=== PATIENT | female | born 1955 | race Caucasian/White ===

== ENCOUNTER 2017-08-23 09:14 | Observation (INO) ==
[2017-08-23] MEDS ORDERED: Aspirin 81 MG TAB.CHEW PO ONE (09:46)
[2017-08-23] MEDS: Nitroglycerin 0.4 MG TAB.SUBL SL ONE ×2 (09:58→10:46)
[2017-08-23 10:03] LABS: Basophils % 0.5 %; Eosinophils % 0.8 %; Hematocrit 39.9 % (35.3-44.9); Hemoglobin 13.5 g/dL (11.5-15.4); Immature Granulocytes % 0.3 % (0-4); Immature Platelets 2.3 % (1.1-6.1); Lymphocytes # 1.2 K/mcL (0.6-4.6); Lymphocytes % 31.4 %; Mean Corpuscular HGB Conc 33.8 g/dL (31.6-35.5); Mean Corpuscular Hemoglobin 30.5 pg (28.0-33.3); Mean Corpuscular Volume 90.1 fL (83.0-100.0); Monocytes # 0.3 K/mcL (0.0-1.3); Monocytes % 8.9 %; Neutrophils # 2.1 K/mcL (1.6-8.9); Platelet Count 220 K/mcL (140-400); Red Blood Count 4.43 M/mcL (3.82-4.97); Red Cell Distribution Width 13.1 % (11.5-14.5); Segmented Neutrophils % 58.1 %
[2017-08-23 10:09] LABS: INR 1.1; Prothrombin Time 11.8 Seconds (9.4-12.1)
[2017-08-23 10:12] LABS: Activated Partial Thrombo Time 34.3 Seconds (26.0-36.0)
[2017-08-23 10:16] LABS: BUN/Creatinine Ratio 18 (6-26); Blood Urea Nitrogen 14 mg/dL (7-20); Calcium 8.9 mg/dL (8.6-10.8); Carbon Dioxide 26 mEq/L (19-29); Chloride 108 mEq/L (98-109); Glucose 85 mg/dL (70-99); Osmolality,Calculated 292 (280-300); Potassium 3.9 mEq/L (3.5-4.5); Sodium 141 mEq/L (136-145); eGFR For African Americans > 60 (> 60); eGFR For Non-African Americans > 60 (> 60)
--- NOTE | 2017-08-23 10:43 | Emergency Department Note ---
Disposition Clinical Impression: Stable angina Chest pain Qualifiers: Chest pain type: unspecified Qualified Code(s): R07.9 - Chest pain, unspecified Disposition: Admitted As Inpatient Condition: Fair Referrals: Mazin Macias [Primary Care Provider] - Forms: ED Satisfaction Letter Time of Disposition: 12:04 Chest Pain HPI - General Chief Complaint: ED Chest Pain Stated Complaint: Chest Heavy Time Seen by Provider: 08/23/17 09:26 Source: patient Mode of arrival: wheelchair Limitations: no limitations Vital Signs Reviewed: Yes Nursing Notes Reviewed: Yes - History of Present Illness HPI Narrative: 61-year-old otherwise healthy female presents to the ED complaining of chest pressure. She states this started this morning when she woke up. She currently has no medical issues does not take any medications outside of a thyroid medication. She has a hypothyroid but states there is been no changes in his medications recently. She says that it is a 4 out of 10 chest pressure nonradiating stays on the left side of her chest. Says it feels like something is sitting on it. She is having no shortness of breath. She is having no nausea or vomiting. She has never had this pain before. Says she did have a similar thing one week ago but it quickly went away. She did not think anything of it. She has never been seen by clinical psychiatrist or have or had a cardiac workup. These chest pains are not exertional that she is having. She has had no shortness of breath. No abdominal pain, change in bowel movements or pain with urination. She has no pain or tingling going down the arms or legs or any numbness. She has had no headaches or blurry vision. She has had no fevers. She otherwise having no complaints. She does have a family history of cardiac it was worse on her mother's side. She does not have a history of hypertension. Severity scale (1-10): 5 - Related Data Home Medications Medication Instructions Recorded Confirmed Alendronate Sodium [Fosamax] 70 mg PO QWEEK 08/23/17 08/23/17 Calcium Carbonate/Vitamin D3 1 tab PO BID 08/23/17 08/23/17 [Calcium 600 + Vit D Tablet] Estradiol [Estrace] 1 mg PO DAILY 08/23/17 08/23/17 Levothyroxine Sodium [Levoxyl] 100 mcg PO DAILY 08/23/17 08/23/17 Allergies Allergy/AdvReac Type Severity Reaction Status Date / Time Penicillins Allergy See Verified 08/23/17 09:21 Comments Review of Systems: 10 point review of systems done and negative unless otherwise stated in history of present illness. All systems ED: reviewed and negative except as stated. Review of Systems: As Per HPI Chest Pain PMH - Past Medical History Medical history: Reports: thyroid disease Psychiatric history: Reports: no psych history - Social History Smoking Status: Never smoker Alcohol use: Reports: rarely Drug use: Reports: none Physical Exam - General Limitations: no limitations General appearance: alert, in no apparent distress - Head Head exam: atraumatic, normocephalic, normal inspection - Eye Eye exam: Present: normal appearance, PERRL, EOMI - ENT ENT exam: normal exam, normal oropharynx, mucous membranes moist - Neck Neck exam: Present: normal inspection, full ROM, trachea midline - Chest Chest inspection: Present: normal inspection, symmetric chest wall rise. Absent : tenderness - Respiratory Respiratory exam: Present: normal lung sounds bilaterally - Cardiovascular Cardiovascular exam: Present: regular rate, normal rhythm, normal heart sounds - Abdominal Exam Abdominal exam: Present: soft, Non-Tender. Absent: tenderness, distention, guarding, rebound, rigidity - Extremities Exam Extremities exam: Present: normal inspection, full ROM. Absent: tenderness, pedal edema - Back Exam Back exam: Present: normal inspection, full ROM. Absent: tenderness, CVA tenderness (R), CVA tenderness (L) - Neurological Exam Neurological exam: Present: alert, oriented X3 - Skin Skin exam: Present: warm, dry, intact, normal color Course Course Narrative: 61-year-old female presents with chest pain. We will do normal chest pain workup including CBC, CMP, troponin as well as a TSH due to her thyroid issues. Will get chest x-ray EKG. I will give her an IV in saline lock. We will do a nitroglycerin trial to valvular chest pain as well as give her full dose aspirin. Patient okay with this plan. Patient most likely will be admitted due to having cardiac workup and this seemed cardiac Vital Signs Temperature 98.0 F 08/23/17 09:19 Pulse Rate 54 08/23/17 09:19 Respiratory Rate 16 08/23/17 09:19 Blood Pressure 135/85 08/23/17 09:19 O2 Sat by Pulse Oximetry 92 08/23/17 09:19 Temperature 98.0 F 08/23/17 09:19 Pulse Rate 57 08/23/17 11:07 Respiratory Rate 16 08/23/17 11:07 Blood Pressure 117/76 08/23/17 11:07 O2 Sat by Pulse Oximetry 99 08/23/17 11:07 Oxygen Delivery Oxygen Delivery Room Air Chest Pain - MDM Narrative Medical decision making narrative: 61-year-old female presents to the ED complaining of chest pain and dyspnea on exertion. She recently started on estrogen and also takes thyroid medication as she does her history of hypothyroidism, she otherwise takes no medications. She has had the chest pain came all of a sudden today is located in left side of her chest and feels like chest pressure due to this we did normal chest pain workup EKG came back showing no acute changes. Chest x-ray was normal all labs came back normal including her troponin. She was hypertensive 170/120 upon arrival suicide to give her a nitroglycerin trial her chest pain did go when her pressure also did lowered to 120/90. Because the nitroglycerin did help the gave her 1 inch of Nitropaste. I also gave her full dose aspirin. Patient was talked to about admission and agreed to be admitted for cardiac evaluation. She has never had the past. Spoke with the hospitalist Dr. Andrea who agreed to admit the patient for chest pain workup. Patient was admitted to the hospitalist service and stable condition. Chest X-Ray 08/23/17 09:46 IMPRESSION: Low lung volumes. D/ / Santana Venegas MD / Santana Venegas MD Interpreting Provider: Santana Venegas MD - Medical Records Medical records reviewed: Yes I reviewed the patient's medical records. - Lab Data Lab results reviewed: Yes I reviewed the patient's lab results. Result diagrams: 08/23/17 09:56 08/23/17 09:56 Lab Results 08/23/17 08/23/17 08/23/17 Range/Units 09:56 09:56 09:56 WBC 3.7 L (4.3-11.1) K/mcL RBC 4.43 (3.82-4.97) M/mcL Hgb 13.5 (11.5-15.4) g/dL Hct 39.9 (35.3-44.9) % MCV 90.1 (83.0-100.0) fL MCH 30.5 (28.0-33.3) pg MCHC 33.8 (31.6-35.5) g/dL RDW 13.1 (11.5-14.5) % Plt Count 220 (140-400) K/mcL MPV 9.0 L (9.4-12.4) fL Immature Gran % 0.3 (0-4) % Seg Neutrophils % 58.1 % Lymphocytes % 31.4 % Monocytes % 8.9 % Eosinophils % 0.8 % Basophils % 0.5 % Neutrophils # 2.1 (1.6-8.9) K/mcL Lymphocytes # 1.2 (0.6-4.6) K/mcL Monocytes # 0.3 (0.0-1.3) K/mcL Eosinophils # 0.0 (0.0-0.6) K/mcL Basophils # 0.0 (0.0-0.2) K/mcL Immature Plt Fraction 2.3 (1.1-6.1) % PT 11.8 (9.4-12.1) Seconds INR 1.1 APTT 34.3 (26.0-36.0) Seconds Sodium 141 (136-145) mEq/L Potassium 3.9 (3.5-4.5) mEq/L Chloride 108 (98-109) mEq/L Carbon Dioxide 26 (19-29) mEq/L BUN 14 (7-20) mg/dL Creatinine 0.77 (0.57-1.11) mg/dL Est GFR ( Amer) > 60 (> 60) Est GFR (Non-Af Amer) > 60 (> 60) BUN/Creatinine Ratio 18 (6-26) Glucose 85 (70-99) mg/dL Calculated Osmolality 292 (280-300) Calcium 8.9 (8.6-10.8) mg/dL Troponin I (0-0.03) ng/mL TSH (0.350-4.840) mcIU/mL 08/23/17 08/23/17 Range/Units 09:56 09:56 WBC (4.3-11.1) K/mcL RBC (3.82-4.97) M/mcL Hgb (11.5-15.4) g/dL Hct (35.3-44.9) % MCV (83.0-100.0) fL MCH (28.0-33.3) pg MCHC (31.6-35.5) g/dL RDW (11.5-14.5) % Plt Count (140-400) K/mcL MPV (9.4-12.4) fL Immature Gran % (0-4) % Seg Neutrophils % % Lymphocytes % % Monocytes % % Eosinophils % % Basophils % % Neutrophils # (1.6-8.9) K/mcL Lymphocytes # (0.6-4.6) K/mcL Monocytes # (0.0-1.3) K/mcL Eosinophils # (0.0-0.6) K/mcL Basophils # (0.0-0.2) K/mcL Immature Plt Fraction (1.1-6.1) % PT (9.4-12.1) Seconds INR APTT (26.0-36.0) Seconds Sodium (136-145) mEq/L Potassium (3.5-4.5) mEq/L Chloride (98-109) mEq/L Carbon Dioxide (19-29) mEq/L BUN (7-20) mg/dL Creatinine (0.57-1.11) mg/dL Est GFR ( Amer) (> 60) Est GFR (Non-Af Amer) (> 60) BUN/Creatinine Ratio (6-26) Glucose (70-99) mg/dL Calculated Osmolality (280-300) Calcium (8.6-10.8) mg/dL Troponin I 0.01 (0-0.03) ng/mL TSH 4.530 (0.350-4.840) mcIU/mL - Radiology Data Radiology results reviewed: Yes I reviewed the patient's radiology results. - EKG Data EKG attestation: Yes I reviewed and interpreted this EKG. EKG results narrative: EKG done at review by myself and the attending shows normal sinus rhythm at a rate of 63, WI interval 160, QRS 93, QTC 404 with a normal axis. No signs of ST changes. There are flipped T waves in leads 3 and V1. No signs of hypertrophy or heart strain. No signs of any heart blocks. No signs of WPW/ Brugada syndrome. There is no old EKG to compare with at this time. Heart Score - Score History: Moderately Suspicious EKG: Normal Age: 45-65 Risk Factors: 1-2 risk factors Troponin: Less than normal limit HEART Score Total: 3 Attestation Statement - Attestation Attestation: I examined this patient and my medical decision-making was reviewed with the Resident Physician, Dr. Montejo. I agree with the documented findings, disposition and treatment plan as described except to the extent set forth below. Patient is a 61-year-old white female with a significant family history for cardiac disease who has a history of thyroid disease who presents to the emergency department today with a one-week history of gradually worsening fatigue, exertional dyspnea, and intermittent episodes of chest pressure which radiates through to her left shoulder blade. Patient states the most recent episode began this morning upon waking and has been constant in nature since approximately 7 AM. Patient denies any associated symptoms with this no shortness of breath, no diaphoresis, no abdominal or flank pain, no nausea vomiting, no lightheadedness or dizziness. Patient has never had any prior cardiac evaluation. She does see a family doctor on a regular basis every 6 months and is on thyroid medication and recently started on estrogen. Patient' s blood pressure is elevated on arrival with no prior history of hypertension. Patient does complain of some increased social stressors as of recent and she feels that when these stressors are exacerbated that his triggers her pain. Patient with no risk factors for PE or DVT or any family history of such. Patient denies any lower extremity cramping or pain. She is a nonsmoker. I agree with patient's physical exam findings as documented. Patient's initial EKG was a normal sinus rhythm with no acute ischemia seen. No prior EKGs for comparison. He should not had aspirin and nitroglycerin trial on arrival, labs obtained and portal chest x-ray ordered. Chest x-ray was within normal limits. All of her lab evaluation including troponin were negative. Patient did get resolution of her chest pressure with 3 nitroglycerin. Blood pressure improved following nitroglycerin trial. Discussed with the patient possibility of being admitted for further evaluation of chest pain and definitive testing, patient agrees with this plan. Case was discussed with hospitalist and the patient for admission for further evaluation. She is hemodynamically stable at this time.
[2017-08-23] MEDS ORDERED: Nitroglycerin 1 INCH/GM PACKET TP ONE (11:11)
[2017-08-23] MEDS ORDERED: Naloxone 0.4 MG/ML INJ IVP PRN (14:54)
[2017-08-23] MEDS ORDERED: *HR* HYDROcodone/Acet 5/325 mg TABLET PO PRN (14:54)
[2017-08-23] MEDS ORDERED: Ondansetron 4 MG/2 ML VIAL IVP PRN (14:54)
[2017-08-23] MEDS ORDERED: *HR* Morphine 2 MG/ML SYRINGE IVP PRN (14:54)
[2017-08-23] MEDS ORDERED: Nitroglycerin 0.4 MG TAB.SUBL SL PRN (14:59)
--- NOTE | 2017-08-23 15:04 | Internal Med History&Physical ---
<Jay Wong - Last Filed: 08/23/17 16:04> Date of Encounter: 08/23/17 Time of Encounter: 14:00 Assessment and Plan (1) Chest pain Current visit: Yes Status: Acute Pt. reports chest pressure accompanied with heart flutter intermittently for the past 2 weeks. Patient reports she is under an extreme amount of stress at home. Denies previous cardiac history. Initial troponin 0.00. Trend 2 continuous cardiac telemetry. Supplemental O2 when necessary. Echocardiogram ordered. Cardiac diet now. Nothing by mouth at midnight. Exercise stress test in a.m. Will consider cardiology consult based on echocardiogram and stress test results. Monitor patient for increasing signs of cardiac and/or respiratory distress. Patient at high risk for cardiac event based on new onset of current chest pain and symptoms. Observation. Qualifiers: Chest pain type: other chest pain Qualified Code(s): R07.89 - Other chest pain; R07.8 - Other chest pain (2) Fatigue Current visit: Yes Status: Acute Pt. reports acute fatigue for the past two weeks r/t chest pain and pressure. Continuous cardiac telemetry. Supplemental O2 PRN. Patient reports she is not experiencing dizziness or lightheadedness and is steady on her feet w/ ambulation. Monitor pt. for safety. Qualifiers: Fatigue type: unspecified Qualified Code(s): R53.83 - Other fatigue (3) Thyroid disease Current visit: Yes Status: Chronic Hx of chronic thyroid disease. TSH 4.50. Continue levothyroxine. (4) DVT prophylaxis Current visit: Yes Status: Acute Lovenox 40 mg 0600 daily for DVT prophylaxis. Internal Medicine - H&P: HPI Chief complaint: Chest pressure w/heart flutter Admitted From: Emergency Dept Plans for Post Hospital Care: Home History of present illness: Ms. Greene is a 61 year old female with medical history of thyroid disease presents from the ED with chief complaint of chest pressure accompanied by heart flutter intermittently for the past 2 weeks. Patient reports the pain located under her left breast and radiates to her left shoulder blade. States there are no alleviating or aggravating factors. Patient denies previous cardiac history or any echocardiogram or stress test in the past. Patient admits she is under extreme amount of stress in the home. He does report chronic thyroid disease and TSH is within normal limits. Patient reports chest pressure, heart flutter, and fatigue but denies recent illness, fever, chills, nausea, vomiting, abdominal pain, diarrhea, SOB, constipation, changes in vision , unusual bleeding, headache, numbness, tingling, lightheadedness, dizziness, pre-syncope, or syncope. Past Med Surg Social Fam HX - Past Medical History Source: patient, old records reviewed, obtained from family Medical history: thyroid disease Psychiatric history: no psych history - Social History Smoking Status: Never smoker Smokeless Tobacco Status: No Alcohol use: rarely Drug use: none Current living situation: Home, With Family Activity Level: Independent ambulation, Very active Recent Out of Country Travel Within the Last 8 Weeks: No Exposure or Possible Exposure to Illness During Travel: No - Family History Father Race: Family Member Ethnicity: Non- Living Status: Age at : 80 Cause of : [place] Hx Family Cardiac Disorders: Yes ([place]) Hx Family Cancer: Yes (Lung) Mother Race: Family Member Ethnicity: Non- Living Status: Age at : 78 Cause of : Lung cancer Hx Family Cardiac Disorders: Yes (CHF, HTN) Hx Family Cancer: Yes (Lung) Hx Family Endocrine Disorder: Yes (DM) Brother Race: Family Member Ethnicity: Non- Living Status: Still Living Hx Family Respiratory Disorders: Yes (COPD) Sister Race: Family Member Ethnicity: Non- Living Status: Still Living Hx Family Cardiac Disorders: Yes (HLD) Internal Medicine - H&P: Meds Alendronate Sodium [Fosamax] 70 mg PO QWEEK 08/23/17 [History] Calcium Carbonate/Vitamin D3 [Calcium 600 + Vit D Tablet] 1 tab PO BID 08/23/17 [History] Estradiol [Estrace] 1 mg PO DAILY 08/23/17 [History] Levothyroxine Sodium [Levoxyl] 100 mcg PO DAILY 08/23/17 [History] 3 Allergy/AdvReac Type Severity Reaction Status Date / Time Penicillins Allergy See Verified 08/23/17 09:21 Comments All Systems PM: A 10-system review of systems was performed and is negative for pertinent findings except as documented above in the HPI. - Constitutional Constitutional: as per HPI, fatigue, no chills, no fever(s), no night sweats - EENT Eyes: no change in vision, no discharge, no pain, no photophobia Ears: no ear discharge, no ear pain, no tinnitus Nose, mouth and throat: no dysphagia, no nasal discharge, no neck pain, no sore throat - Breasts Breasts: as per HPI - Cardiovascular Cardiovascular ROS IM: as per HPI, chest pain, irregular heart rhythm (Flutter intermittently) - Respiratory Respiratory: no cough, no dyspnea, no wheezing, no excessive phlegm production - Gastrointestinal Gastrointestinal: no abdominal pain, no diarrhea, no hematemesis, no hematochezia, no melena, no nausea, no vomiting - Genitourinary Genitourinary: no change in urinary stream, no dysuria, no flank pain, no hematuria Menstruation: as per HPI - Musculoskeletal Musculoskeletal ROS IM: no numbness, no tingling - Integumentary Integumentary IM: no rash, no unusual bruising - Neurological Neurological ROS: no confusion, no convulsions, no focal weakness, no numbness, no tingling, no tremor(s) - Psychiatric Psychiatric: as per HPI - Endocrine Endocrine IM: as per HPI - Hematologic/Lymphatic Hematologic/Lymphatic: no easy bruising - Allergic/Immunologic Allergic/Immunologic: as per HPI - Constitutional Vitals: Temp Pulse Resp BP Pulse Ox 98.0 F 81 14 118/72 96 08/23/17 09:19 08/23/17 15:02 08/23/17 15:02 08/23/17 15:02 08/23/17 15:02 General appearance: Present: cooperative, A&O X 3, pleasant, no acute distress, answers questions appropriately - Head Head exam: Present: atraumatic, normal inspection, normocephalic - Eye Eye exam: Present: PERRL, conjuntiva pink, sclera anicteric Pupils: Present: PERRL - ENT ENT exam: Present: normal exam, normal external ear exam - Neck Neck exam general surgery: Present: normal inspection, supple, trachea midline - Respiratory Respiratory exam: Present: CTAB. Absent: accessory muscle use, rales, rhonchi, wheezes - Cardiovascular Cardiovascular exam: Present: RRR, +S1, +S2. Absent: diastolic murmur, gallop, rubs, systolic murmur - GI/Abdominal GI/Abdominal exam: Present: normal bowel sounds, soft, no peritoneal signs. Absent: distended, tenderness - Rectal Rectal exam: Present: deferred - External exam: Present: ecchymosis Additional comments: exam deferred. - Extremities Exam Extremities exam: Present: warm, radial pulses palpable and symmetrical. Absent : calf tenderness, cyanotic, pedal edema - Back Exam Back exam: Present: normal inspection - Neurological Exam Neurological exam: Present: CN II-XII intact, oriented X3, no focal deficits. Absent: pronater drift, facial droop, speech deficit - Psychiatric Psychiatric exam: Present: normal affect, normal mood - Skin Skin exam: Present: dry, intact Internal Med - H&P Results - Labs CBC & Chem 7: 08/23/17 09:56 08/23/17 09:56 - EKG Data EKG shows normal: sinus rhythm - EKG Data Prior EKG available for review: no Interpretation IM: normal EKG EKG comments: 08/23/17 15:54 EKG dated 08/23/17 shows sinus rhythm and normal ECG. - Diagnostic Studies Chest x-ray Additional comments: Impressions Chest X-Ray 08/23/17 09:46 IMPRESSION: Low lung volumes. D/ / Santana Venegas MD / Santana Venegas MD Interpreting Provider: Santana Venegas MD <Charles Andrea P - Last Filed: 08/23/17 18:49> Date of Encounter: 08/23/17 Internal Medicine - H&P: HPI History of present illness: Ms. Greene is a 61 year old female All Systems PM: A 10-system review of systems was performed and is negative for pertinent findings except as documented above in the HPI. - Constitutional Vitals: Temp Pulse Resp BP Pulse Ox 98.0 F 59 15 105/64 98 08/23/17 18:33 08/23/17 18:33 08/23/17 18:33 08/23/17 18:33 08/23/17 18:33 Internal Med - H&P Results - Labs CBC & Chem 7: 08/23/17 09:56 08/23/17 09:56 Labs: Cardiac Enzymes 08/23/17 Range/Units 18:07 Troponin I 0.00 (0-0.03) ng/mL - Attending Attestation I examined this patient and my medical decision-making was reviewed with the Resident Physician /STEEL MANAGER. I agree with the documented findings, disposition and treatment plan as described except to the extent set forth below. Chest pain to rule out ACS protocol
[2017-08-23] MEDS: 0.9 % Sodium Chloride 1,000 ML IVC SCH (17:52)
--- NOTE | 2017-08-23 19:40 | Electrocardiograph Report ---
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
[2017-08-23] MEDS: (Calcium Carbonate/Vitamin D3 [Calcium 600 + Vit D Ta) PO SCH (21:03)
[2017-08-23] MEDS: Acetaminophen 325 MG TABLET PO PRN (21:08)
[2017-08-23] MEDS ORDERED: Ibuprofen 400 MG TABLET PO ONE (23:11)
[2017-08-24 00:55] LABS: Basophils % 0.3 %; Hematocrit 34.9 % (35.3-44.9); Immature Granulocytes % 0.3 % (0-4); Lymphocytes # 1.2 K/mcL (0.6-4.6); Lymphocytes % 39.2 %; Mean Corpuscular HGB Conc 33.8 g/dL (31.6-35.5); Mean Corpuscular Hemoglobin 30.3 pg (28.0-33.3); Mean Corpuscular Volume 89.5 fL (83.0-100.0); Mean Platelet Volume 9.3 fL (9.4-12.4); Monocytes # 0.3 K/mcL (0.0-1.3); Monocytes % 10.1 %; Neutrophils # 1.5 K/mcL (1.6-8.9); Platelet Count 188 K/mcL (140-400); Red Cell Distribution Width 13.2 % (11.5-14.5); Segmented Neutrophils % 49.1 %
[2017-08-24 00:57] LABS: Hemoglobin 11.8 g/dL (11.5-15.4)
[2017-08-24 01:03] LABS: INR 1.1; Prothrombin Time 12.4 Seconds (9.4-12.1)
[2017-08-24 01:06] LABS: Activated Partial Thrombo Time 32.1 Seconds (26.0-36.0); Hemoglobin A1C 4.7 %
[2017-08-24 01:13] LABS: Alanine Aminotransferase 12 Units/L (0-55); Albumin/Globulin Ratio 1.1 (1.1-2.2); Alkaline Phosphatase 44 Units/L (38-126); Aspartate Amino Transferase 20 Units/L (5-34); BUN/Creatinine Ratio 19 (6-26); Bilirubin,Total 0.4 mg/dL (0.2-1.2); Blood Urea Nitrogen 15 mg/dL (7-20); Calcium 7.9 mg/dL (8.6-10.8); Carbon Dioxide 24 mEq/L (19-29); Chloride 111 mEq/L (98-109); Chol/HDL Ratio 2.9 (0-4.9); Cholesterol 166 mg/dL (< 200); Globulin 2.7 g/dL (2.4-3.5); Glucose 95 mg/dL (70-99); HDL Cholesterol 58 mg/dL (40-59); LDL Cholesterol,Calculated 94 mg/dL (0-99); Magnesium 1.7 mg/dL (1.6-2.6); Osmolality,Calculated 293 (280-300); Potassium 3.7 mEq/L (3.5-4.5); Sodium 141 mEq/L (136-145); Total Protein 5.7 g/dL (6.0-8.3); Triglycerides 69 mg/dL (< 150); eGFR For African Americans > 60 (> 60); eGFR For Non-African Americans > 60 (> 60)
[2017-08-24] MEDS: 0.9 % Sodium Chloride 1,000 ML IVC SCH ×2 (05:14→10:40)
[2017-08-24] MEDS ORDERED: *HR* Enoxaparin 40 MG/0.4 ML SYRINGE SQ SCH (06:00)
[2017-08-24] MEDS ORDERED: Regadenoson 0.4 MG/5 ML SYRINGE IVP ONE (06:06)
[2017-08-24] MEDS ORDERED: Aspirin Enteric Coated 81 MG Tablet PO SCH (09:00)
[2017-08-24] MEDS: (Calcium Carbonate/Vitamin D3 [Calcium 600 + Vit D Ta) PO SCH (09:59)
[2017-08-24] MEDS: Acetaminophen 325 MG TABLET PO PRN (12:47)
--- NOTE | 2017-08-24 14:27 | Discharge Summary ---
Date of Encounter: 08/24/17 Time of Encounter: 09:45 - Discharge Diagnosis (1) Chest pain Priority: Primary Status: Acute Comments: Pt reports 1-2 week history of left chest pressure with intermittent palpitations. She denies SOB, n/v/d, no radiation. Denies relieving or aggravating factors. She denies chest pain since arrival. Pt reports that she has a lot of stress at home recently. TSH WNL. EKG normal sinus rhythm with a rate of 63, AK interval 160, QRS 93, QTC 404. Troponins negative x3. Chest xray shows low lung volumes, no acute process. Labs WNL, other than chronically low WBC count. It is at pt's baseline. Stress test negative for ischemia or infarct, gated EF > 70%, echo with LVEF 60 % Normal LV diastolic function, normal RV function, mild TR. Pt denies chest pain since arrival. Pain is not reproducible to palpation, movement, or deep inspiration. Agree with pt that this may be related to anxiety or musculoskeletal chest pain. Qualifiers: Chest pain type: other chest pain Qualified Code(s): R07.89 - Other chest pain; R07.8 - Other chest pain (2) Thyroid disease Priority: Secondary Status: Chronic Comments: TSH WNL. Continue home dose of levothyroxine. (3) DVT prophylaxis Priority: Secondary Status: Acute Comments: Lovenox SQ (4) Fatigue Priority: Secondary Status: Acute Comments: Pt reports increased fatigue for 1-2 weeks. Pt denies change in routine. This could be a result of increased stress/anxiety. Labs are WNL, other than chronic neutropenia. Vitals are stable. Unknown cause for fatigue. Qualifiers: Fatigue type: unspecified Qualified Code(s): R53.83 - Other fatigue - Discharge Medications Prescriptions: Aspirin Enteric Coated [Aspirin EC] 81 mg PO DAILY #30 tablet. Home Medications: Alendronate Sodium [Fosamax] 70 mg PO QWEEK 08/23/17 [History] Calcium Carbonate/Vitamin D3 [Calcium 600 + Vit D Tablet] 1 tab PO BID 08/23/17 [History] Estradiol [Estrace] 1 mg PO DAILY 08/23/17 [History] Levothyroxine Sodium [Levoxyl] 100 mcg PO DAILY 08/23/17 [History] Aspirin Enteric Coated [Aspirin EC] 81 mg PO DAILY #30 tablet. 08/24/17 [Rx] Allergies/Adverse Reactions: 3 Allergy/AdvReac Type Severity Reaction Status Date / Time Penicillins Allergy See Verified 08/23/17 09:21 Comments Procedures/tests Complete & Pending: Procedures Performed prior 72 hours Category Date Time Status NM angela perf SPECT multi [NM] Routine Exams 08/24/17 06:19 Taken EV echocardiogram Routine Y 08/23/17 14:57 Completed SP exercise nuclear stress Routine Y 08/24/17 07:10 Completed Date of admission: 08/23/17 12:25 Primary care physician: Mazin Macias Consults: 08/23/17 14:56 Consult to Sample Patternmaker [CONS] Routine Reason for SW Consult: Patient reports she is under an extreme amount of stress in her life right now. Please assess for options available to her for stress management for post-discharge planning. Discharging clinician: Rabia Pickens Anticipated date of discharge: 08/24/17 - Patient Status Disposition: Home, Self-Care Condition: Good Functional capacity at discharge: independent ambulation Overall status at discharge: patient is back to baseline - Discharge Instructions Follow Up With: Mazin Macias [Primary Care Provider] - Additional Instructions: Please follow up with your primary care provider in the next 7-10 days. Continue taking your medications and add baby aspirin Return to the ER as needed for any other problems or concerns or if your symptoms return or worsen. Return to your normal activities and diet as tolerated. - Diet and Activity Activity: increase activity as tolerated Diet: advance to your usual diet Interval History: Please see assessment and plan for hospital course. Hospital course: Ms. Greene is a 61 year old female Time spent discussing smoking cessation with patient: 3 to 10 minutes - Time Spent with Patient Total time spent providing and/or coordinating discharge services: Less than 30 minutes - Constitutional Vitals: Temp Pulse Resp BP Pulse Ox 97.6 F 68 18 132/77 92 08/24/17 10:02 08/24/17 10:02 08/24/17 10:02 08/24/17 10:02 08/24/17 10:02 General appearance: Present: cooperative, A&O X 3, pleasant, no acute distress, answers questions appropriately - Head Head exam: Present: atraumatic, normocephalic - Eye Eye exam: Present: normal appearance, conjuntiva pink, sclera anicteric - Neck Neck exam general surgery: Present: supple, trachea midline. Absent: lymphadenopathy, tenderness - Respiratory Respiratory exam: Present: CTAB. Absent: accessory muscle use, rales, rhonchi, wheezes - Cardiovascular Cardiovascular exam: Present: RRR, +S1, +S2. Absent: diastolic murmur, gallop, rubs, systolic murmur - GI/Abdominal GI/Abdominal exam: Present: normal bowel sounds, soft, no peritoneal signs. Absent: distended, hepatomegaly, tenderness - Extremities Exam Extremities exam: Present: normal capillary refill, normal inspection, warm, radial pulses palpable and symmetrical. Absent: calf tenderness, cyanotic, pedal edema - Neurological Exam Neurological exam: Present: CN II-XII intact, oriented X3, no focal deficits. Absent: pronater drift, facial droop, speech deficit - Skin Skin exam: Present: dry, intact, normal color, warm. Absent: rash
[2017-08-24 15:11] VITALS: BP 130/73
[2017-08-26] MEDS ORDERED: (Alendronate Sodium [Fosamax] 70 MG) PO SCH (07:00)
== END 2017-08-24 18:11 | disposition home or self-care (01) ==
LOC: 3BNU 09:14 → EMEROO 09:14 → 3BNU 15:37
PROVIDERS: ADMIT Internal Medicine; ATTEND Registered Nurse